=== PATIENT | female | born 1955 | race Caucasian/White ===

== ENCOUNTER 2016-10-16 11:56 | Day surgery (SDC) | payer OTHER ==
[~2016-10-16] VITALS: Ht 167.6 cm; Wt 59.7 kg
[~2016-10-16 11:56] MED LIST: CLON-429 PO; FLUT9.9S NS; LORA10CA PO; SERT20OR PO; TRAZ50TA18 PO; [UNRECOGNIZED DRUG - OTHER]
[2016-10-16 13:29] VITALS: Ht 167.6 cm; Wt 59.7 kg
[2016-10-16 13:47] VITALS: BP 93/52; PULSE 58; RESP 14
[2016-10-16] MEDS ORDERED: PROPOFOL 40 ML ONE (13:47)
[2016-10-16 14:45] VITALS: BP 100/67; RESP 20
--- NOTE | 2016-10-16 15:13 | GILP ---
DATE OF PROCEDURE: 10/16/2016 NAME OF PROCEDURE: Esophagogastroduodenoscopy and biopsy. SURGEON: Bulmaro Rojas MD PREOPERATIVE DIAGNOSIS: Abdominal pain. POSTOPERATIVE DIAGNOSES: 1. Hiatal hernia. 2. Gastroesophageal reflux disease. 3. Gastritis. 4. Gastric mucosal biopsies were taken for Helicobacter pylori test. INDICATION FOR THE PROCEDURE: Ms. Xin Solis is a 60-year-old female patient who was complainin g of upper abdominal pain, not responding to therapy. Patient was scheduled for endoscopic examinat ion for further evaluation. The procedure and possible complications were well explained to the patient, she understood and cons ented to the procedure. DESCRIPTION OF PROCEDURE: Under the influence of anesthesia, the gastroscope was carefully introduc ed into the esophagus and under direct vision, it was advanced to the stomach and through the pyloru s into the duodenal bulb and descending duodenum. FINDINGS: ESOPHAGUS: The patient had a hiatal hernia and gastroesophageal reflux disease. STOMACH: She had gastritis. Gastric mucosal biopsies were taken for H. pylori test. DUODENUM: Normal. She tolerated the procedure very well and there was no complication from the procedure. At the end of the procedures, she was awake with stable vital signs and she was discharged home to the care of her family. IMPRESSION: 1. Hiatal hernia. 2. Gastroesophageal reflux disease. 3. Gastritis. 4. Gastric mucosal biopsies were taken for Helicobacter pylori test. PLAN: 1. Continue omeprazole. 2. Await Helicobacter pylori test report. Dictated By: BULMARO ZAVALA/GISSELLE Conf#: [id number] DID#: [id number]
== END 2016-10-16 16:00 | disposition home or self-care (01) ==
LOC: GIL 11:56
PROVIDERS: ATTEND Internal Medicine Gastroenterology
DX: K44.9 Diaphragmatic hernia without obstruction or gangrene (principal); K21.9 Gastro-esophageal reflux disease without esophagitis; K29.70 Gastritis, unspecified, without bleeding
CPT/HCPCS: 43239; 87081; Z7610